=== PATIENT | female | born 1980 | race Caucasian/White ===

== ENCOUNTER 2017-05-28 11:57 | Emergency (ER) | payer MEDICAID ==
[~2017-05-28] VITALS: Ht 162.6 cm; Wt 78.0 kg
[2017-05-28 11:59] VITALS: Ht 162.6 cm; Wt 78.0 kg
--- NOTE | 2017-05-28 14:31 | RADRPT ---
PROCEDURE: XR Right Ribs and chest CLINICAL INDICATION: Right rib pain TECHNIQUE: Multiple oblique views of the right ribs were obtained. A a single chest radiograph was also obtained. The images were reviewed on a PACS workstation. COMPARISON: None. FINDINGS: Cardiovascular structures: The cardiovascular silhouette appears unremarkable. Lung velazquez: The lung velazquez are clear. Pleural spaces: No pneumothorax or pleural fluid accumulation is evident. Osseous structures: The right ribs and other osseous structures appear intact. IMPRESSION: 1. No right rib fracture or destruction is identified. 2. Unremarkable chest. Physician Magdalena Date Time Electronically viewed and signed by Physician Magdalena on 05/28/2017 14:31 /
[2017-05-28] MEDS ORDERED: IBUP-1542 PO (15:00)
--- NOTE | 2017-05-28 15:09 | ERD ---
ER Documentation Chief Complaint Date/Time DATE: 05/28/17 TIME: 15:00 Chief Complaint right rib pain, slipped HPI Patient a 36-year-old female with a history of epilepsy presents emergency department with concerns of right rib pain and SOB. Patient states pain 1 hour. Patient states she was in the shower when she slipped and hit her right rib cage on the metal sliding door bar. Patient states that she was not feeling dizzy or did not have any lightheadedness prior to the fall. Patient states she did not have a seizure and recalls all events of the injury. Patient reports compliancy with her seizure medications daily and states that her last seizure was over one year ago. She reports taking ibuprofen 600 mg prior to arrival.Patient denies any nausea, vomiting, headache, neck pain, back pain, blurry vision, excessive sleepiness or loss of consciousness. She denies any saddle anesthesia, urinary incontinence, stool incontinence, tongue bite sibley. ROS All systems reviewed and are negative except as per history of present illness. Medications Home Meds Active Scripts Ibuprofen* (Motrin*) 600 Mg Tab, 600 MG PO Q6, #20 TAB Prov:KORIN BROWN PA-C 05/28/17 Physical Exam Vitals Vital Signs Date Time Temp Pulse Resp B/P Pulse Ox O2 Delivery O2 Flow Rate FiO2 05/28/17 11:59 98.1 70 18 130/75 99 Physical Exam GENERAL: Well-developed, well-nourished female. Appears in no acute distress. Speaking in full sentences. HEAD: Normocephalic, atraumatic. No deformities or ecchymosis. EYE: Pupils equal, round, and reactive to light. EOMs intact. No conjunctival erythema. No eye discharge. ENT: External ear without any masses or tenderness. Auditory canals clear bilaterally. TM visualized bilaterally, non-erythematous, non-bulging. Nasal mucosa pink with no discharge. Oropharynx is pink without any tonsillar erythema or exudates. No uvula deviation. No kissing tonsils. No bite isbley. NECK: Supple. No meningismus. Normal ROM of the neck. No cervical midline tenderness noted. LUNG: Clear to auscultation bilaterally. No rhonchi, wheezing, rales or coarse breath sounds. HEART: Regular rate and rhythm. No murmurs, rubs or gallops. CHEST: Slight area of ecchymosis noted on the right rib cage. No palpable deformities or step offs. BACK: No midline tenderness. EXTREMITIES: Equal pulses bilaterally. No peripheral clubbing, cyanosis or edema. No unilateral leg swelling. NEUROLOGIC: Alert and oriented to person, place and time. Moving all four extremities. 5/5 strength in all extremities. Normal speech. Steady gait. SKIN: Normal color. Warm and dry. No rashes or lesions. Procedures/MDM ED COURSE: The patient was stable throughout ED course. I kept the patient and/or family informed of laboratory and diagnostic imaging results throughout the ED course. DIAGNOSTIC IMAGING: Read by radiologist. Patient: TIFFANY CLAY : 1980 Age: 36 Sex: F MR #: [id number] DOS: 05/28/17 1316 Ordering MD: KORIN BROWN PA-C Location: [facility] Room/Bed: PROCEDURE: XR Right Ribs and chest CLINICAL INDICATION: Right rib pain TECHNIQUE: Multiple oblique views of the right ribs were obtained. A a single chest radiograph was also obtained. The images were reviewed on a PACS workstation. COMPARISON: None. FINDINGS: Cardiovascular structures: The cardiovascular silhouette appears unremarkable. Lung velazquez: The lung velazquez are clear. Pleural spaces: No pneumothorax or pleural fluid accumulation is evident. Osseous structures: The right ribs and other osseous structures appear intact. IMPRESSION: 1. No right rib fracture or destruction is identified. 2. Unremarkable chest. Physician Magdalena Date Time Electronically viewed and signed by Physician Magdalena on 05/28/2017 14:31 RH/ CC: KORIN BROWN PA-C MEDICAL DECISION MAKING: This is a 36-year-old female presents with right rib pain and shortness of breath after falling in the shower. She does have a history of epilepsy however she states she was not feeling dizzy or lightheaded prior to the fall injury. Patient had no urinary incontinence, stool incontinence, tongue bite sibley. Patient did recall full events of the incident. Patient is compliant with her seizure medications. Vital signs were reviewed. Patient was afebrile. Patient was not hypoxic. Chest x-ray and right rib series were obtained and were essentially negative. At this time the patient's presentation is most consistent with rib contusion. Low suspicion for rib fracture, pneumothorax, ACS, seizure, respiratory distress, respiratory failure.. PRESCRIPTIONS: Ibuprofen DISCHARGE: At this time, patient is stable for discharge and outpatient management. Patient advised to put ice on the affected area. Advised to continue seizure medications as prescribed. Patient given a copy of chest x-ray.I have instructed the patient to follow-up with his/her primary care physician in 1-2 days. If symptoms persist, patient may need to see a specialist for further examinations and testing. I have instructed the patient to promptly return to the ER at any time for any new or worsening symptoms including increased increased pain, fever, nausea, vomiting, numbness, weakness, diaphoresis or LOC. The patient and/or family expressed understanding of and agreement with this plan. All questions were answered. Home care instructions were provided. Disclaimer: Inadvertent spelling and grammatical errors are likely due to EHR/ dictation software use and do not reflect on the overall quality of patient care. Also, please note that the electronic time recorded on this note does not necessarily reflect the actual time of the patient encounter. Departure Diagnosis: Primary Impression: Contusion of rib on right side Encounter type: initial encounter Qualified Code: S20.211A - Contusion of rib on right side, initial encounter Condition: Stable Patient Instructions: Rib Contusion Referrals: [facility] YOU HAVE RECEIVED A MEDICAL SCREENING EXAM AND THE RESULTS INDICATE THAT YOU DO NOT HAVE A CONDITION THAT REQUIRES URGENT TREATMENT IN THE EMERGENCY DEPARTMENT. FURTHER EVALUATION AND TREATMENT OF YOUR CONDITION CAN WAIT UNTIL YOU ARE SEEN IN YOUR DOCTORS OFFICE WITHIN THE NEXT 1-2 DAYS. IT IS YOUR RESPONSIBILITY TO MAKE AN APPOINTMENT FOR FOLOW-UP CARE. IF YOU HAVE A PRIMARY DOCTOR --you should call your primary doctor and schedule an appointment IF YOU DO NOT HAVE A PRIMARY DOCTOR YOU CAN CALL OUR PHYSICIAN REFERRAL HOTLINE AT IF YOU CAN NOT AFFORD TO SEE A PHYSICIAN YOU CAN CHOSE FROM THE FOLLOWING [facility] CLINICS [facility] [address] [facility]. [facility] [address] [facility] [address] [facility]. [facility] [address] [facility] [address] [facility]. [facility]. [address] [facility]. [facility] YOU HAVE RECEIVED A MEDICAL SCREENING EXAM AND THE RESULTS INDICATE THAT YOU DO NOT HAVE A CONDITION THAT REQUIRES URGENT TREATMENT IN THE EMERGENCY DEPARTMENT. FURTHER EVALUATION AND TREATMENT OF YOUR CONDITION CAN WAIT UNTIL YOU ARE SEEN IN YOUR DOCTORS OFFICE WITHIN THE NEXT 1-2 DAYS. IT IS YOUR RESPONSIBILITY TO MAKE AN APPOINTMENT FOR FOLOW-UP CARE. IF YOU HAVE A PRIMARY DOCTOR --you should call your primary doctor and schedule and appointment IF YOU DO NOT HAVE A PRIMARY DOCTOR YOU CAN CALL OUR PHYSICIAN REFERRAL HOTLINE AT . IF YOU CAN NOT AFFORD TO SEE A PHYSICIAN YOU CAN CHOSE FROM THE FOLLOWING [facility] INSTITUTIONS: [facility] [address] [place] [address] [facility] [address] [place] [address] [facility] + [facility] [address] [place] [address] Additional Instructions: Call your primary care doctor TOMORROW for an appointment during the next 1-2 days.See the doctor sooner or return here if your condition worsens before your appointment time. KORIN BROWN PA-C May 28, 2017 15:09
== END 2017-05-28 15:58 | disposition home or self-care (01) ==
LOC: FTE 11:57
DX: S20.211A Contusion of right front wall of thorax, initial encounter (principal); W22.8XXA Striking against or struck by other objects, initial encounter; Y92.9 Unspecified place or not applicable
CPT/HCPCS: 71100; Z7502